=== PATIENT | male | born 1940 | race Caucasian/White ===

== ENCOUNTER → 2018-03-11 08:16 | Outpatient (CLI) | payer MEDICARE, OTHER, SELFPAY ==
[2018-03-11 08:38] LABS: Add Manual Diff / Slide Review NO; Basophils Percent Auto 0.6 % (0-2); Eosinophils Percent Auto 3.7 % (2-4); Hematocrit 40.7 % (41-53); Hemoglobin 14.5 g/dL (13.5-17.5); Lymphocytes Percent Auto 13.8 % (25-40); Mean Corpuscular HGB Conc 35.6 % (30-36); Mean Corpuscular Hemoglobin 36.2 PG (26-34); Mean Corpuscular Volume 101.7 fL (80-100); Monocytes Percent Auto 12.2 % (3-14); Neutrophils Absolute Auto 3300 /uL (3000-5900); Neutrophils Percent Auto 69.7 % (50-75); Platelet Count 158 X10^3/uL (150-400); Red Blood Cell Count 4.01 X10^6/uL (4.5-5.9); Red Cell Distribution Width 13.4 % (11.6-14.8); White Blood Cell Count 4.7 X10^3/uL (4.5-11.0)
[2018-03-11 09:07] LABS: Alanine Aminotransferase 35 IU/L (21-72); Albumin 4.3 g/dL (3.5-5.0); Albumin Globulin Ratio 2.2 (1.0-2.8); Alkaline Phosphatase 55 U/L (38-126); Aspartate Aminotransferase 33 IU/L (17-59); BUN Creatinine Ratio 18.6 (6-22); Bilirubin Total 1.5 mg/dL (0.2-1.3); Blood Urea Nitrogen 13 mg/dL (9-20); Calcium 10.2 mg/dL (8.4-10.2); Carbon Dioxide 27 mmol/L (22-32); Chloride 93 mmol/L (98-107); Cholesterol 146 mg/dL (140-199); Estimated Glomerular Filt Rate > 60.0 mL/min (>60); Glucose 109 mg/dL (80-110); HDL Cholesterol 82 mg/dL (40-60); HEMOLYSIS 16 (0-50); LDL Cholesterol Calculated 54 mg/dL (<100); Potassium 4.5 mmol/L (3.4-5.1); Sodium 129 mmol/L (137-145); Total Protein 6.3 g/dL (6.3-8.2); Triglycerides 48 mg/dL (35-150)
== END ==
PROVIDERS: Family Provider Family Medicine; PCP Family Medicine; Visit Provider Family Medicine
DX: I10 Essential (primary) hypertension (principal); I73.9 Peripheral vascular disease, unspecified; E78.5 Hyperlipidemia, unspecified; E87.1 Hypo-osmolality and hyponatremia; Z12.5 Encounter for screening for malignant neoplasm of prostate
CPT/HCPCS: 36415; 80053; 80061; 84153; 85025

== ENCOUNTER 2018-05-12 16:49 | Emergency (ER) | payer MEDICARE, OTHER, SELFPAY ==
--- NOTE | 2018-05-12 17:02 | DI.RAD.S_ITS ---
PROCEDURE: XR CHEST 1V INDICATIONS: unresponsive - post intubation TECHNIQUE: One view of the chest was acquired. COMPARISON: [facility], CR, XR CHEST 2 VIEWS, 06/30/2017, 6:37. [facility], CR, CHEST 1 VIEW, 08/19/2014, 12:42. FINDINGS: Surgical changes and devices: The patient is intubated and the endotracheal tube is approximately 8.1 cm above the farnaz. Cardiac pacer is unchanged. Lungs and pleura: There is diffuse interstitial prominence in a perihilar distribution. No pleural effusion or pneumothorax. Mediastinum: Mediastinal contours appear normal. Heart size is normal. Bones and chest wall: No suspicious bony lesions. Overlying soft tissues appear unremarkable. IMPRESSION: Diffuse perihilar interstitial prominence suggesting florid pulmonary edema. Endotracheal tube 8 cm above the farnaz. Dictated by: Sharon Maldonado M.D. on 05/12/2018 at 17:18 Approved by: Sharon Maldonado M.D. on 05/12/2018 at 17:19
[2018-05-12 17:12] LABS: INR 1.2 (0.9-1.3); Prothrombin Time 12.7 SECONDS (10.1-12.7)
[2018-05-12 17:13] LABS: Add Manual Diff / Slide Review NO; Basophils Percent Auto 0.7 % (0-2); Eosinophils Percent Auto 1.4 % (2-4); Hematocrit 49.6 % (41-53); Hemoglobin 16.2 g/dL (13.5-17.5); Lymphocytes Percent Auto 13.8 % (25-40); Mean Corpuscular HGB Conc 32.6 % (30-36); Mean Corpuscular Hemoglobin 35.5 PG (26-34); Mean Corpuscular Volume 108.8 fL (80-100); Monocytes Percent Auto 10.8 % (3-14); Neutrophils Absolute Auto 10400 /uL (3000-5900); Neutrophils Percent Auto 73.3 % (50-75); Platelet Count 159 X10^3/uL (150-400); Red Blood Cell Count 4.56 X10^6/uL (4.5-5.9); Red Cell Distribution Width 13.8 % (11.6-14.8); White Blood Cell Count 14.3 X10^3/uL (4.5-11.0)
--- NOTE | 2018-05-12 17:13 | ED_ITS ---
HPI - CPR General Stated Complaint: Unresponsive Time Seen by Provider: 05/12/18 17:07 Source: EMS Mode of arrival: EMS History of Present Illness HPI narrative: Would be EMS brings this 78-year-old gentleman in critical condition to the emergency department prior to with CPR in progress. They were called to his residence for severe shortness of breath over the course of the day and found him and what appeared to be pulmonary edema. He was given morphine and nitro and a trial at CPAP but his condition worsened and etomidate was given in preparation for intubation and patient was found to be absent pulses. He was then intubated and CPR was initiated. Prior to his arrival for rounds of ACLS were performed. Patient was taken directly into trauma 1 with our code team waiting. Related Data Home Medications Medication Instructions Recorded Confirmed ascorbic acid (vitamin C) 2,000 mg PO QDAY #0 06/15/17 03/19/18 aspirin 81 mg PO QDAY #0 06/15/17 03/19/18 cyanocobalamin (vitamin B-12) 500 mg PO QDAY #0 06/15/17 03/19/18 [Vitamin B-12] multivitamin [Multiple Vitamins] 1 tab PO QDAY #0 06/15/17 03/19/18 triamcinolone acetonide [Nasacort] 1 puff INTRANASAL HS #0 06/15/17 03/19/18 gabapentin 100 mg capsule 100 mg PO BID #0 cap 03/18/18 03/19/18 ipratropium bromide 05/12/18 05/12/18 Previous Rx's Medication Instructions Recorded lansoprazole 30 mg PO PRN #30 tab 07/20/17 clobetasol 0 % TOPICAL BID #60 gm 09/03/17 diazepam [Valium] 5 mg PO HSP PRN #60 tab 09/23/17 amlodipine 5 mg tablet 5 mg PO QDAY #90 tab 03/18/18 etodolac 400 mg tablet 400 mg PO BID #60 tab 03/18/18 losartan 50 mg tablet 50 mg PO BID #180 tab 03/18/18 metoprolol succinate ER 25 mg 25 mg PO BID #120 tab 03/18/18 tablet,extended release 24 hr lovastatin 40 mg tablet 40 mg PO DAILY #90 tab 03/22/18 Allergies Allergy/AdvReac Type Severity Reaction Status Date / Time No Known Drug Allergies Allergy Verified 03/19/18 13:42 Review of Systems Review of Systems due to endotracheal tube and unobtainable due to mental status Exam Narrative Exam Narrative: Critical ill 78-year-old male is intubated with CPR in progress Const General: acute distress and patient mechanically ventilated Nutritional Appearance: well nourished Orientation: confused HENKS Head: normocephalic and atraumatic Ears: external ears normal and TM's normal bilaterally Nose: external nose normal and No nasal discharge Face and sinus: sinuses nontender, face symmetric, no sinus tenderness and No dry mucous membranes Mouth: oral mucosae normal Teeth and gingiva: dentition normal Throat: tonsils normal and uvula midline Eyes Eyelids: eyelids normal Neck Neck: normal visual inspection, trachea midline, No lymphadenopathy, No midline deformity and No JVD Lymphatic: No lymphedema Chest Chest: normal inspection of the chest Resp Auscultation: rhonchi Other: Patient intubated GI Inspection: non-distended Palpation: soft, no hepatosplenomegaly, No guarding, No pulsatile mass and No tender Skin Other: mottled Neuro Other: Sedated on vent. No purposeful movement Extrem General: no clubbing, cyanosis or edema, no pedal edema and no calf tenderness Psych Appearance: well kempt Thought Content: suicidality Course Additional Information: Patient had completed 4 rounds of ACLS prior to his arrival. We completed 2 more rounds with repeated pulse checks noting no pulse , yet a paced PE a rhythm. He was given bicarb and calcium and after the 6th round we noted an increase in his end-tidal CO2 followed closely by a return of spontaneous circulation. The patient has received no sedating medications as required no pressor support. He has maintained a stable blood pressure in the 130s since return spontaneous circulation. Called to [facility] given obvious need for cardiac evaluation, intervention and cardiac ICU with the potential of cooling. They are happy to accept and recommend transporting directly to the emergency department. Dr. Mae is happy to accept this patient into the emergency department. [facility] department dispatch to transport this patient stat, we are sending a nurse and respiratory therapist along Orders Ordered: ED Orders 05/12/18 16:55 Complete Blood Count AUTO DIFF Stat Comprehensive Metabolic Panel Stat Lipase Stat Partial Thromboplastin Time Stat Prothrombin Time INR Stat Troponin & CK Cardiac Panel Stat 05/12/18 17:02 Chest [XR chest 1V] Stat 05/12/18 17:05 EKG-12 Lead Stat MDM - Cardiac Arrest/CPR Lab Data Result diagrams: 05/12/18 16:55 05/12/18 16:55 Discharge Plan Departure Patient Disposition: [facility] Clinical Impression: Cardiac arrest Prescriptions: No Action triamcinolone acetonide [Nasacort] 55 MCG/PUFF aerosol,spray 1 puff Intranasal HS Qty: 0 RF: 0 multivitamin [Multiple Vitamins] 1 EACH tablet 1 tab PO QDAY Qty: 0 RF: 0 aspirin 81 MG tablet,delayed release (DR/EC) 81 mg PO QDAY Qty: 0 RF: 0 cyanocobalamin (vitamin B-12) [Vitamin B-12] 250 mcg Tablet 500 mg PO QDAY Qty: 0 RF: 0 ascorbic acid (vitamin C) 500 MG tablet 2,000 mg PO QDAY Qty: 0 RF: 0 lansoprazole 30 MG capsule,delayed release(DR/EC) 30 mg PO PRN Qty: 30 RF: 5 clobetasol 0.05 % ointment Topical BID Qty: 60 RF: 5 diazepam [Valium] 5 MG tablet 5 mg PO HSP PRNQty: 60 RF: 1 lovastatin 40 mg tablet 40 mg PO DAILY Qty: 90 RF: 3 amlodipine [Norvasc] 5 mg tablet 5 mg PO QDAY Qty: 90 RF: 3 etodolac 400 mg tablet 400 mg PO BID Qty: 60 RF: 1 gabapentin 100 mg capsule 100 mg PO BID Qty: 0 RF: 0 losartan [Cozaar] 50 mg tablet 50 mg PO BID Qty: 180 RF: 1 metoprolol succinate [Toprol XL] 25 mg tablet extended release 24 hr 25 mg PO BID Qty: 120 RF: 5 ipratropium bromide 42 mcg (0.06 %) spray,non-aerosol RF: 0
[2018-05-12 17:15] LABS: PTT Partial Thromboplastin Tim 41 SECONDS (26.4-36.2)
[2018-05-12 17:17] LABS: Alanine Aminotransferase 22 IU/L (21-72); Albumin 4.5 g/dL (3.5-5.0); Albumin Globulin Ratio 2.3 (1.0-2.8); Alkaline Phosphatase 72 U/L (38-126); Aspartate Aminotransferase 54 IU/L (17-59); BUN Creatinine Ratio 13.6 (6-22); Bilirubin Total 1.3 mg/dL (0.2-1.3); Blood Urea Nitrogen 15 mg/dL (9-20); Calcium 10.2 mg/dL (8.4-10.2); Carbon Dioxide 18 mmol/L (22-32); Chloride 92 mmol/L (98-107); Creatine Kinase 152 U/L (55-170); Estimated Glomerular Filt Rate > 60.0 mL/min (>60); Glucose 267 mg/dL (80-110); Lipase 80 U/L (23-300); Potassium 3.4 mmol/L (3.4-5.1); Sodium 131 mmol/L (137-145); Total Protein 6.5 g/dL (6.3-8.2)
[2018-05-12 17:19] LABS: HEMOLYSIS 94 (0-50)
[2018-05-12 17:28] LABS: Troponin I 0.112 ng/mL (0.01-0.034)
[2018-05-12 17:32] LABS: CKMB % Relative Index 5.7 % (1.5-5.0); Creatine Kinase MB 8.71 ng/mL (<2.37)
[2018-05-12 17:43] LABS: Fractionated Inspired Oxygen 100; HCO3 ABG 13 mmol/L (23-27); Oxygen Saturation ABG 89 % (95-100); PCO2 ABG 45.6 mmHg (35-45); PO2 ABG 78 mmHg (80-105); TCO2 ABG 15 mmol/L (23-27)
[2018-05-12 17:44] LABS: pH ABG 7.08 (7.35-7.45)
[2018-05-12 17:45] VITALS: BP 141/77; PULSE 66; RESP 21; O2SAT 88
[2018-05-12 18:25] VITALS: BP 79/49; PULSE 96; RESP 29; O2SAT 99
[2018-05-12 19:34] VITALS: PULSE 77; RESP 30; O2SAT 98
== END 2018-05-12 18:25 | disposition short-term general hospital (02) ==
PROVIDERS: Emergency Provider Emergency Medicine; Family Provider Family Medicine; PCP Family Medicine
DX: I46.9 Cardiac arrest, cause unspecified (principal)
CPT/HCPCS: 36600; 71045; 80053; 82550; 82553; 82805; 83690; 84484; 85025; 85610; 85730; 92950; 93005; 93010; 94770; 99282; 99285; 99291; 99292